=== PATIENT | male | born 1995 | race American Indian/Alaskan Native ===

== ENCOUNTER 2023-09-03 16:22 | Emergency (ER) | payer OTHER ==
[~2023-09-03] VITALS: Ht 167.6 cm; Wt 113.6 kg
[2023-09-03 16:43] VITALS: TEMP 98.5
[2023-09-03 18:15] LABS: BASO # 0.1 K/mm3 (0.0-0.2); BASO % 0.6 % (0.0-2.0); EOS # 0.3 K/mm3 (0.0-0.7); EOS % 3.9 % (0.0-4.0); GRAN # 4.8 K/mm3 (1.4-6.5); HEMATOCRIT 44.6 % (42.0-52.0); HEMOGLOBIN 15.2 g/dl (13.5-18.0); LYMPH # 2.4 K/mm3 (1.2-3.4); LYMPH % 29.1 % (20.0-51.0); MEAN CELL VOLUME 86 fl (80.0-100.0); MEAN CORPUSCULAR HEMOGLOBIN 29 pg (27-31); MEAN CORPUSCULAR HGB CONC 34 g/dl (33.0-37.0); MEAN PLATELET VOLUME 9.3 fl (7.4-10.4); MONO # 0.6 K/mm3 (0.1-0.6); MONO % 6.9 % (1.7-9.3); PLATELET COUNT 379 K/mm3 (130-400); RED BLOOD COUNT 5.18 M/mm3 (4.20-5.60); REDCELL DISTRIBUTION WIDTH-CV 12.2 % (11.5-14.5)
[2023-09-03 18:45] LABS: ALANINE AMINOTRANSFERASE 49 U/L (0-55); ALBUMIN 3.8 g/dL (3.5-5.0); ALKALINE PHOSPHATASE 89 U/L (40-150); ANION GAP 11 mmol/L (7-16); AST,SGOT 27 U/L (5-34); BILIRUBIN,TOTAL 0.6 mg/dL (0.2-1.2); BLOOD UREA NITROGEN 18 mg/dL (9-21); CALCIUM 9.6 mg/dL (8.4-10.2); CHLORIDE 105 mEq/L (98-107); CREATININE, serum 0.89 mg/dL (0.72-1.25); GLUCOSE 99 mg/dL (70-99); SODIUM 139 mEq/L (136-145); TOTAL PROTEIN 7.6 g/dl (6.2-8.1)
[2023-09-03 18:54] LABS: TROPONIN-I < 0.010 ng/mL (0.00-0.033)
[2023-09-03 19:32] VITALS: BP 122/75; PULSE 86
== END 2023-09-03 19:32 | disposition home or self-care (01) ==
LOC: COL.ER 16:22
PROVIDERS: Nurse Practitioner Primary Care
DX: R00.2 Palpitations (principal); R07.89 Other chest pain